=== PATIENT | male | born 1970 | race Asian ===

== ENCOUNTER 2019-04-09 11:22 | Emergency (ER) | payer OTHER ==
[~2019-04-09] VITALS: Ht 177.8 cm; Wt 86.2 kg
--- NOTE | 2019-04-09 11:28 | NUR ---
Patient ambulated to bed 3 with family. RN evaluating patient at bedside.
--- NOTE | 2019-04-09 11:30 | NUR ---
49/F C/O SOB X YEARS BUT WORSENING IN THE LAST 1-1.5 WEEKS. DENIES FEVER AND COUGH BUT STATES DOES HAVE SPUTUM PRODUCTION. SOB WORSE WITH LYING DOWN FLAT AND WHEN INHALING SECONDHAND SMOKE AT HIS JOB. PT WAS PREVIOUS SMOKER 20 YEARS AGO. STATES RECEIVED CXR 1 MONTH AGO--NEGATIVE. HX- HEP B, DM
--- NOTE | 2019-04-09 11:32 | NUR ---
PLACED ON BEDSIDE MONITOR---SATURATING 97-98% ON RA. DR. MATHEWS AWARE.
[2019-04-09 11:33] VITALS: BP 139/99
--- NOTE | 2019-04-09 11:37 | NUR ---
Dr. Ireland is evaluating the patient at bedside.
--- NOTE | 2019-04-09 12:37 | NUR ---
accessibility lift technician at bedside.
--- NOTE | 2019-04-09 13:07 | NUR ---
REPORT GIVEN TO DEVANG BRYANT/JEROMY BRYANT. TRANSFER OF CARE AT THIS TIME.
--- NOTE | 2019-04-09 13:09 | NUR ---
Dr. Ireland is re-evaluating the patient at bedside.
--- NOTE | 2019-04-09 13:25 | NUR ---
Patient discharged with v/s stable. Written and verbal after care instructions given and explained. Patient verbalized understanding. Ambulatory with steady gait. All questions addressed prior to discharge. Advised to follow up with PMD.
[2019-04-09 13:29] VITALS: BP 127/81
== END 2019-04-09 13:25 | disposition home or self-care (01) ==
LOC: MED 11:22
DX: R06.02 Shortness of breath (principal); E11.9 Type 2 diabetes mellitus without complications; Z86.19 Personal history of other infectious and parasitic diseases
CPT/HCPCS: 71045; 99283